=== PATIENT | female | born 1990 | race Caucasian/White ===

== ENCOUNTER 2018-08-13 17:28 | Emergency (ER) | payer MEDICAID, SELFPAY ==
[2018-08-13 17:31] VITALS: BP 138/67; PULSE 94; RESP 12; TEMP 37.2; O2SAT 100; BMI 33.5
--- NOTE | 2018-08-13 17:58 | US_ITS ---
We are attempting to reach Raffaele Colbert MD to discuss findings. An addendum with communication details will be sent when the communication is complete. STUDY: VENOUS DOPPLER ULTRASOUND - LEFT LOWER EXTREMITY REASON FOR EXAM: Female, 28 years old. Swelling TECHNIQUE: Ultrasound evaluation of the deep vein system to include winchester-scale imaging and compression was performed. Winchester-scale imaging and Doppler sonographic evaluation, including duplex spectral analysis and qualitative color flow sonography, was performed. COMPARISON: None. FINDINGS: Common Femoral Vein: Normal compression, spontaneity and augmentation. Normal color Doppler. Common Femoral Vein/Greater Saphenous Junction: Normal compression. Femoral Proximal: Normal compression. Femoral Middle: Normal compression, spontaneity and augmentation. Normal color Doppler. Femoral Distal: Normal compression. Popliteal Vein: Normal compression, spontaneity and augmentation. Normal color Doppler. Posterior Tibial Vein: Normal compression. Peroneal Vein: Normal compression. US/Venous Duplex Imag/Limited/Uni IMPRESSION: Normal venous Doppler ultrasound of the lower extremity. Pending Final Proof Editing
[2018-08-13] MEDS: Naproxen 500 MG Tablet PO (18:01)
--- NOTE | 2018-08-13 19:17 | ED.VISSUMM ---
- ER Visit Summary Date of Service: 08/13/18 Chief Complaint: Left leg pain History of Present Illness: The patient is a 28 F [facility]. She reports she has pain in the anterior left leg that began 5 days ago. He says sharp, throbbing pain that is 7-10 hours and 4-10 currently. Is worsened by walking and relieved by rest. Denies any paresthesias distally. She denies any recent trauma. No fall, MVA, or change in activity. Patient denies any personal or family history of DVT. No recent travel. She is not on control pills. She does smoke. She denies any chest pain or shortness of breath. Physical Examination: Vitals: Stable. Afebrile. General: Well-nourished and well-developed. Head: Normocephalic atraumatic. Neck: Supple, no lymphadenopathy. No JVD. Nontender. Cardiovascular: Regular rate and rhythm. No murmurs. Respiratory: No respiratory distress. Clear to auscultation bilaterally. Abdominal: Soft, nontender, nondistended, normal bowel sounds. No guarding, rebound, or peritoneal signs. Back: Nontender. Extremities: Mild tenderness palpation over the anterior surface of her left leg both medially and laterally. This is only in the distal area. She has no calf tenderness. No edema. She is a 2+ dorsalis pedis pulse. She is neurovascular intact distally's. No erythema or warmth to suggest infection. Skin: Normal color, no rash. Neurologic: Alert and oriented ?3. Cranial nerves II through XII are intact. Normal strength and sensation. Psych: Normal affect. Test Results: Lower extremity Doppler is negative. Emergency Department Course and Treatment: Patient was treated with naproxen. She is resting comfortably. Treatment Plan: Patient be discharged naproxen. Instructed to ice the area. [facility] if not improving. Return to the emergency department for any worsening symptoms. Disposition: To home in improved and stable condition. Impression: 1. Left leg pain, acute. This note was generated with [employer] dictation software. It may contain incorrect words, spelling, and punctuation that were not noted in review of the chart prior to signing ED Disposition - Plan for ED Patient: Disposition: Home or Assisted Living Instructions: ED Muscle Pain Leg Cramps Prescriptions: Naproxen [Naprosyn] 500 mg PO BID #20 tablet Referrals: J[facility] Agu[facility] [NON-STAFF] - 1 Week if not improving
--- NOTE | 2018-08-13 19:20 | ED.DCSUM_ITS ---
- ER Visit Summary Date of Service: 08/13/18 Chief Complaint: Left leg pain History of Present Illness: The patient is a 28 F who [facility]. She reports she has pain in the anterior left leg that began 5 days ago. He says sharp, throbbing pain that is 7-10 hours and 4-10 currently. Is worsened by walking and relieved by rest. Denies any paresthesias distally. She denies any recent trauma. No fall, MVA, or change in activity. Patient denies any personal or family history of DVT. No recent travel. She is not on control pills. She does smoke. She denies any chest pain or shortness of breath. Physical Examination: Vitals: Stable. Afebrile. General: Well-nourished and well-developed. Head: Normocephalic atraumatic. Neck: Supple, no lymphadenopathy. No JVD. Nontender. Cardiovascular: Regular rate and rhythm. No murmurs. Respiratory: No respiratory distress. Clear to auscultation bilaterally. Abdominal: Soft, nontender, nondistended, normal bowel sounds. No guarding, rebound, or peritoneal signs. Back: Nontender. Extremities: Mild tenderness palpation over the anterior surface of her left leg both medially and laterally. This is only in the distal area. She has no calf tenderness. No edema. She is a 2+ dorsalis pedis pulse. She is neurovascular intact distally's. No erythema or warmth to suggest infection. Skin: Normal color, no rash. Neurologic: Alert and oriented ?3. Cranial nerves II through XII are intact. Normal strength and sensation. Psych: Normal affect. Test Results: Lower extremity Doppler is negative. Emergency Department Course and Treatment: Patient was treated with naproxen. She is resting comfortably. Treatment Plan: Patient be discharged naproxen. Instructed to ice the area. [facility] if not improving. Return to the emergency department for any worsening symptoms. Disposition: To home in improved and stable condition. Impression: 1. Left leg pain, acute. This note was generated with [employer] dictation software. It may contain incorrect words, spelling, and punctuation that were not noted in review of the chart prior to signing ED Disposition - Plan for ED Patient: Disposition: Home or Assisted Living Instructions: ED Muscle Pain Leg Cramps Prescriptions: Naproxen [Naprosyn] 500 mg PO BID #20 tablet Referrals: [facility] [NON-STAFF] - 1 Week if not improving
[2018-08-13 19:34] VITALS: BP 124/62; PULSE 87; RESP 17; O2SAT 97
== END 2018-08-13 19:35 | disposition home or self-care (01) ==
LOC: ED 18:09
PROVIDERS: Emergency Provider Emergency Medicine
DX: M79.605 Pain in left leg (principal); F17.200 Nicotine dependence, unspecified, uncomplicated
CPT/HCPCS: 93971; 99283

== ENCOUNTER → 2018-11-27 15:16 | Outpatient (CLI) | payer MEDICAID, SELFPAY ==
--- NOTE | 2018-11-27 | CYST_PTH ---
PATIENT: RICHARD MELCHOR LOC: [facility] U#:[id number] AGE/SX: 35/F ROOM: RE11/27/[address]: Dr. Giacomo Patel MD : 1990 BED: DIS: SPEC #: [id number] RECD: 11/27/18 15:16 STATUS: SHANICE QUIN #: [id number] RENETTA: 11/27/18 00:[address]: Giacomo Patel DEPT: SURGICAL PATHOLOGY RECD BY: Pierre Ventura ENTERED: 11/28/18 09:10 SP TYPE: Cyst OTHR DR: No Primary Care Phys [facility] Tissues: CYST Procedures: Surgery Specimen Level IV HEADER OPERATION: Excision mucous retention cyst left lower lip PRE-OP DIAGNOSIS: Mucous retention cyst left lower lip TISSUE SUBMITTED: Mucous retention cyst MICROSCOPIC DIAGNOSIS Cyst of left lower lip, excision: Consistent with mucous retention cyst with associated fibrosis and mild chronic inflammation. Minor salivary gland tissue with mild chronic inflammation. No evidence of malignancy. AM:livia 11/29/18 MICROSCOPIC DESCRIPTION Slides are reviewed. GROSS DESCRIPTION Received in fixative is one container labeled with the patient's name and designated mucous retention cyst, left lower lip. The specimen consists of a castro portion of skin and underlying cystic soft tissue. The skin measures 1 x 0.4 cm. The skin surface is castro and smooth. The underlying soft tissue demonstrates a cystic structure measuring 0.5 cm in diameter. Also present within the same specimen container is a smaller portion of skin measuring 0.5 x 0.2 cm. The specimen is totally submitted in one cassette. / CE:livia 11/28/18 TC:5 CPT: 92007
== END ==
PROVIDERS: Referring Provider Otolaryngology Otolaryngology/Facial Plastic Surgery; Visit Provider Otolaryngology Otolaryngology/Facial Plastic Surgery
DX: K13.0 Diseases of lips (principal)
CPT/HCPCS: 88304; 88305

== ENCOUNTER → 2020-06-05 09:11 | Outpatient (CLI) | payer MEDICAID, SELFPAY ==
--- NOTE | 2020-06-05 09:19 | US_ITS ---
STUDY: ULTRASOUND BREAST - LEFT REASON FOR EXAM: Female, 30 years old. Palpable lump retroareolar region of the left breast. TECHNIQUE: Axial and longitudinal images of the LEFT breast were performed with a high resolution ultrasound transducer. # OF IMAGES: 19 COMPARISON: Comparison is made with prior mammogram done earlier in the day. FINDINGS: LEFT Breast: The retroareolar region of the breast was examined by ultrasound. No sonographic abnormality is seen. US/Breast Limited Unilateral IMPRESSION: No sonographic abnormality is seen. ASSESSMENT CATEGORY: BIRADS Category 1: Negative. A letter regarding these results will be sent to the patient by the facility within 30 days. Electronically Signed: Vasiliy Rodriguez, at 12:13 EST , Service support ,
--- NOTE | 2020-06-05 09:19 | BI_ITS ---
MAMMOGRAPHY - BILATERAL DIAGNOSTIC REASON FOR EXAM: Female, 30 years old. Palpable lump in the upper inner quadrant of the left breast. PERTINENT HISTORY: Grandmothers with breast cancer. TECHNIQUE: Digital bilateral breast suzie (3D mammographic acquisition) in the CC and MLO projections. 2-D mediolateral oblique (MLO) and craniocaudad (CC) views of both breasts were obtained. CAD: Full Field Digital Mammography with Computer Added Detection was performed. COMPARISON: None. Baseline examination. FINDINGS: Breast Composition: The breasts are almost entirely fatty. There are no dominant masses or suspicious calcifications. No other significant abnormalities are identified. BI/DIAG MAMM W/CAD, BILAT IMPRESSION: Negative diagnostic mammogram. With the patient''s history of palpable lump in the left breast, correlation with ultrasound is recommended. ASSESSMENT CATEGORY: BIRADS Category 0: Incomplete. Need additional imaging evaluation. A letter regarding these results will be sent to the patient by the facility within 30 days. Approximately 10% of breast cancers are not detected by mammography. A normal mammogram should not delay biopsy of a clinically suspicious abnormality. Electronically Signed: Vasiliy Rodriguez, at 10:45 EST , Service support ,
== END ==
DX: N63.20 Unspecified lump in the left breast, unspecified quadrant (principal)
CPT/HCPCS: 76642; 77062; 77066; G0279

== ENCOUNTER 2025-04-12 21:00 | Emergency (ER) | payer MEDICAID, SELFPAY ==
[2025-04-12 21:00] VITALS: BP 125/76; PULSE 67; RESP 15; TEMP 36.6; O2SAT 100; BMI 28.5
--- NOTE | 2025-04-12 21:08 | ED.VIS.GI ---
HPI <Dr. Alexey Christian DO - Last Filed: 04/12/25 23:13> HPI - GI History of Present Illness Chief Complaint: Abd Pain Informant: patient Abdominal Pain/Flank Pain Onset: Hours (12) Context: Gradual Onset Timing: Continuous Quality: Sharp Location: RLQ Worsened by: Nothing Relieved by: Nothing Nausea/Vomiting/Emesis GI Symptom: Positive for Nausea; Negative for Vomiting Diarrhea/Melena/Hematochezia GI Symptom: Negative for Diarrhea, Melena or Hematochezia Associated Symptoms Associated Symptoms: Negative for Dysuria, Frequency or Hematuria Narrative Narrative: Patient presents with abdominal pain that began approximately 12 hours prior to arrival. Patient states her pain is mainly over the right side of her abdomen. Patient describes it as sharp. Patient states nothing makes it worse and nothing makes it better. Patient admits to some nausea but denies any vomiting. Patient denies any diarrhea, melena, or hematochezia. Patient denies any dysuria, frequency, or hematuria. Patient states her last menstrual period was approximately 5 days ago. Patient states she last ate approximately 3 hours ago and last drank approximately 2 hours prior to arrival. Patient denies any fevers or chills. [facility] <Dr. Alexey Crhistian, DO - Last Filed: 04/12/25 23:13> [facility] Medical History (Updated 04/12/25 @ 23:[address] Alexey Christian, DO) M?ni?re's disease Home Medications ?Medication ?Instructions ?Recorded ?Last Taken ?Type naproxen 500 mg tablet 500 mg PO BID #20 tabs 08/13/18 Unknown Rx Allergy/AdvReac Type Severity Reaction Status Date / Time psyllium Allergy Severe Hives Verified 04/12/25 21:09 amoxicillin Allergy Hives Verified 04/12/25 21:09 ciprofloxacin (From Cipro) Allergy Hives Verified 04/12/25 21:09 ciprofloxacin HCl (From Allergy Hives Verified 04/12/25 21:09 Cipro) nickel Allergy Rash Verified 04/12/25 21:09 nitrofurantoin (From Allergy Hives Verified 04/12/25 21:09 Macrobid) nitrofurantoin Allergy Hives Verified 04/12/25 21:09 macrocrystalline (From Macrobid) sulfamethoxazole (From Allergy Hives Verified 04/12/25 21:09 Bactrim) trimethoprim (From Bactrim) Allergy Hives Verified 04/12/25 21:09 Surgical History (Updated 04/12/25 @ 21:[address] Alexey Christian DO) Hx of tonsillectomy Social History Smoking Status: Current every day smoker tobacco type: cigarettes ROS <Dr. Alexey Christian, DO - Last Filed: 04/12/25 23:13> ROS ED Constitutional Constitutional ED: Denies chills or fever(s) Eyes Eyes: Denies blurry vision or change in vision ENT ENT ED: Denies rhinorrhea or sore throat Cardiovascular Cardiovascular: Denies chest pain or palpitations Respiratory/Chest Respiratory/Chest: Denies cough or dyspnea Gastrointestinal Gastrointestinal: Reports abdominal pain and nausea; Denies diarrhea, melena or vomiting Genitourinary Genitourinary ED: Denies dysuria or hematuria Musculoskeletal Musculoskeletal: Denies back pain or neck pain Integumentary Denies abscess or rash Neurologic Neurologic: Denies headache(s) or weakness Allergic/Immunologic Allergic/Immunologic ED: Denies mouth swelling or urticaria EXAM <Dr. Alexey Christian, DO - Last Filed: 04/12/25 23:13> Physical Exam Const Vital Signs: 04/12/25 21:00 04/12/25 23:00 Temperature 97.8 F Temperature Source Oral Pulse Rate 67 55 L Respiratory Rate 15 18 Blood Pressure 125/76 H 118/79 Blood Pressure Mean 92 92 Pulse Ox 100 100 Oxygen Delivery Method Room Air Positive well nourished and well developed General Appearance ED: well developed and NAD HEENT Reports moist mucous membranes Neck supple and no JVD Resp normal respiratory effort and clear to auscultation bilaterally Cardio regular rate and regular rhythm GI non-distended Palpation: soft and tender epigastric, LLQ, RLQ, LUQ, RUQ, periumbilical and suprapubic; Negative for guarding or rebound tenderness present Neuro CN's II-XII intact bilaterally, moves all extremities and no sensory deficits noted Sensorium / Orientation: alert Motor Exam: strength 5/5 throughout Psych mental status grossly normal <Dr. Iban Maier, DO - Last Filed: 04/13/25 00:11> Physical Exam Const Vital Signs: 04/12/25 21:00 04/12/25 23:00 Temperature 97.8 F Temperature Source Oral Pulse Rate 67 55 L Respiratory Rate 15 18 Blood Pressure 125/76 H 118/79 Blood Pressure Mean 92 92 Pulse Ox 100 100 Oxygen Delivery Method Room Air [facility] <Dr. Alexey Christian, DO - Last Filed: 04/12/25 23:13> [facility] Narrative Medical decision making narrative: Differential diagnosis includes urinary tract infection, colitis, diverticulitis, appendicitis, bowel obstruction, perforation, pancreatitis, viral illness, ectopic , electrolyte abnormality, and anxiety. CBC will be obtained to assess for leukocytosis and anemia. Comprehensive metabolic profile will be obtained to assess for hepatic function, renal function, and electrolyte abnormality. Lipase will be obtained to assess for pancreatitis. Serum hCG will be obtained to assess for . CT scan of the abdomen and pelvis will be obtained to assess for diverticulitis, appendicitis, bowel obstruction, perforation. History & Record Review Additional record(s) reviewed:: Prior labs Lab Data Attestation: I reviewed the patient's lab results. Lab results narrative: CBC was reviewed. There is a mild anemia with a hemoglobin of 11.3 and hematocrit of 33.7. The remainder is within normal limits. Comprehensive metabolic profile was reviewed and was essentially within normal limits. Lipase was reviewed and was normal at 24. Urine hCG was reviewed and was negative. Labs: Laboratory Results - last 24 hr 04/12/25 21:22 WBC 9.4 RBC 3.66 L Hgb 11.3 L Hct 33.7 L MCV 92.1 MCH 30.9 MCHC 33.5 RDW Std Deviation 39.4 RDW Coeff of Drake 11.7 Plt Count 234 MPV 9.8 Immature Gran % (Auto) 0.300 Neut % (Auto) 70.1 H Lymph % (Auto) 23.9 [place] % (Auto) 4.3 Eos % (Auto) 0.9 Baso % (Auto) 0.5 Absolute Neuts (auto) 6.6 Absolute Lymphs (auto) 2.25 Nucleated RBC % 0 Sodium 137 Potassium 3.6 Chloride 102 Carbon Dioxide 23.7 Anion Gap 12 BUN 12 Creatinine 0.80 Estim Creat Clear Calc 93.08 Est GFR (MDRD) Non-Af 98 BUN/Creatinine Ratio 15.3 Glucose 112 H Calcium 9.3 Total Bilirubin 0.23 AST 20 ALT 17 Alkaline Phosphatase 50 Total Protein 7.0 Albumin 4.2 Globulin 2.7 Albumin/Globulin Ratio 1.5 Lipase 24 Serum , Qual NEGATIVE Radiography Diagnostic Testing: Clinical Impression(s) from Imaging Studies Abdomen/Pelvis CT 04/12/25 21:21 IMPRESSION: No acute abnormality identified. Reading Location: [facility] Treatment and Re-Evaluation :: Patient was given IV fluids, morphine, and Zofran. Patient was feeling somewhat better on reevaluation. Patient was advised of her findings. Care of the patient will be turned over to the oncoming physician pending CT scan results. <Dr. Iban Maier, DO - Last Filed: 04/13/25 00:11> [facility] Lab Data Labs: Laboratory Results - last 24 hr 04/12/25 21:22 WBC 9.4 RBC 3.66 L Hgb 11.3 L Hct 33.7 L MCV 92.1 MCH 30.9 MCHC 33.5 RDW Std Deviation 39.4 RDW Coeff of Drake 11.7 Plt Count 234 MPV 9.8 Immature Gran % (Auto) 0.300 Neut % (Auto) 70.1 H Lymph % (Auto) 23.9 [place] % (Auto) 4.3 Eos % (Auto) 0.9 Baso % (Auto) 0.5 Absolute Neuts (auto) 6.6 Absolute Lymphs (auto) 2.25 Nucleated RBC % 0 Sodium 137 Potassium 3.6 Chloride 102 Carbon Dioxide 23.7 Anion Gap 12 BUN 12 Creatinine 0.80 Estim Creat Clear Calc 93.08 Est GFR (MDRD) Non-Af 98 BUN/Creatinine Ratio 15.3 Glucose 112 H Calcium 9.3 Total Bilirubin 0.23 AST 20 ALT 17 Alkaline Phosphatase 50 Total Protein 7.0 Albumin 4.2 Globulin 2.7 Albumin/Globulin Ratio 1.5 Lipase 24 Serum , Qual NEGATIVE Radiography Diagnostic Testing: Clinical Impression(s) from Imaging Studies Abdomen/Pelvis CT 04/12/25 21:21 IMPRESSION: No acute abnormality identified. Reading Location: [facility] Treatment and Re-Evaluation Comments:: Patient was signed out to me while awaiting the official results of her abdominal CT scan. CT scan revealed no clinically significant findings such as bowel obstruction perforation abscess kidney stone or intestinal infection such as diverticulitis. On reevaluation patient is resting comfortably and abdomen remains soft and nonsurgical. Her labs revealed no clinically significant findings either. Therefore with overall negative workup and stable vitals I do not feel there is need for further intervention and she is otherwise safe for discharge. Discharge Plan Triage Chief Complaint: Abd Pain ED Provider: Alexey Christian Dx/Rx/DC Orders Clinical Impression: Abdominal pain Instructions: ED Abdominal Pain Unkn Cause Fem Prescriptions: No Action naproxen 500 MG tablet 500 mg PO BID Qty: 20 0RF Primary Care Provider: Care Physician,No Primary Referrals: Care Physician,No Primary [Primary Care Provider, Medical] Activity Restrictions/Additional Instructions: Your workup did not reveal any signs of acute infection within the abdomen on the CT scan and your labs revealed no clinically significant changes either. Follow-up with your family doctor for repeat evaluation and return to the ER should you have any further concerns Print Language: [place] Disposition Disposition: Home, Self Care
--- NOTE | 2025-04-12 21:21 | CT_ITS ---
PROCEDURE: ABDOMEN/PELVIS W IV CONT ONLY 04/12/2025 REASON FOR EXAM: ABDOMINAL PAIN TECHNIQUE: Procedure Code: [id number] Modality: CT Procedure: ABDOMEN/PELVIS W IV CONT ONLY Coronal and Sagittal reconstruction series were provided. CONTRAST: Isovue-300 VOLUME: 100 mL One or more dose reduction techniques were used (e.g., Automated exposure control, adjustment of the mA and/or kV according to patient size, use of iterative reconstruction technique. FINDINGS: Normal lumbar vertebral body height and alignment. Disc space narrowing at L5-S1. The lung bases are clear. The liver and spleen are unremarkable. The gallbladder is absent. There is no renal mass or hydronephrosis. There is no pancreatic mass or inflammation seen. There is no free-fluid in the pelvis. The bladder contour is normal. There is no colonic obstruction or definite wall thickening. Negative for significant small bowel distention or appendicitis. CT/Abdomen/Pelvis W IV Cont ONLY IMPRESSION: No acute abnormality identified. Reading [facility]
[2025-04-12] MEDS: 0.9% Normal Saline (1000mL) 1,000 ML 999 ML IV (21:34)
[2025-04-12 21:35] LABS: Hematocrit 33.7 % (37-47); Hemoglobin 11.3 g/dL (12.0-15.0); Immature Granulocytes Count 0.030 X10^3/uL (0.0-0.0); Mean Corp Hgb Conc 33.5 g/dL (32-36); Mean Corpuscular Volume 92.1 fL (81-99); Mean Platelet Vol. 9.8 fl (6.2-12.0); NRBC Flagged by Analyzer 0 % (0-5); Platelet Count 234 K/mm3 (150-450); RBC Distribution Width CV 11.7 % (11.6-14.6); RBC Distribution Width SD 39.4 fl (35.1-43.9); Red Blood Count 3.66 M/mm3 (4.2-5.4); White Blood Count 9.4 K/mm3 (4.4-11.0)
[2025-04-12 21:45] LABS: Internal QC Validated? YES +Cl - CLEAR BKGD; Pregnancy, Serum, hCG Quali. NEGATIVE Negative; Record Kit Lot#, Serum Preg. 0000980607
[2025-04-12 21:56] LABS: AST(SGOT) 20 U/L (<=31); Alanine Aminotransfer ALT/SGPT 17 U/L (<=34); Albumin, Serum 4.2 g/dL (3.5-5.0); Alkaline Phosphatase 50 U/L (35-104); Anion Gap 12 (5-15); BUN 12 mg/dL (4-19); BUN/Creat Ratio 15.3 RATIO (10-20); Calcium,Total 9.3 mg/dL (7.6-11.0); Carbon Dioxide 23.7 mmol/L (21.0-32.0); Chloride 102 mmol/L (98-108); Estimated Creatinine Clearance 93.08 ml/min (50-250); Globulin 2.7 g/dL (2.2-4.2); Glucose 112 mg/dL (70-99); Lipase 24 U/L (13-75); Potassium 3.6 mmol/L (3.3-5.1)
[2025-04-12 23:00] VITALS: BP 118/79; PULSE 55; RESP 18; O2SAT 100
[2025-04-13 00:15] VITALS: BP 113/72; PULSE 48; RESP 18; TEMP 37; O2SAT 100
== END 2025-04-13 00:19 | disposition home or self-care (01) ==
PROVIDERS: Emergency Provider Emergency Medicine; Visit Provider Emergency Medicine
DX: R10.31 Right lower quadrant pain (principal); R11.0 Nausea; F17.210 Nicotine dependence, cigarettes, uncomplicated
CPT/HCPCS: 74177; 80053; 83690; 84703; 85025; 96361; 96374; 96375; 99284; Q9967; A4216; J2405